=== PATIENT | female | born 1930 | race Caucasian/White ===

== ENCOUNTER 2017-06-05 12:49 | Inpatient (IN) | payer MEDICARE, BC ==
[2017-06-05] MEDS ORDERED: MORPHINE SULFATE 10 MG/ML SYRINGE IM STA (13:39)
--- NOTE | 2017-06-05 13:51 | ED ---
General Adult HPI - General Chief complaint: Extremity Injury, Lower Stated complaint: Fall-Hip Pain Time Seen by Provider: 06/05/17 13:30 Source: patient, family, RN notes reviewed, old records reviewed Mode of arrival: wheelchair Limitations: no limitations - History of Present Illness Initial comments: This is an 87-year-old female presenting to the emergency department after a fall in a restaurant parking lot. Patient reports that she must tripped. She reports that when she fell she does have an abrasion over her left elbow but has significant left hip and pelvis pain. Patient reports that she was not able to ambulate and get up afterward. She was brought into the emergency department by her sons. Patient reports that she does have a orthopedic physician Dr. Mandeep luis. She reports that she has had no broken bones or any surgeries. She reports that she is generally in well health. She denies any neck or head injury during the fall. She reports she has full range of motion of her knee, foot and ankle. Patient reports that she isn't 0 pain while laying still with however she has to move it is 10 of 10. - Related Data Home Medications Medication Instructions Recorded Confirmed No Known Home Medications [No 10/14/14 06/05/17 Known Home Medications] Allergies Allergy/AdvReac Type Severity Reaction Status Date / Time No Known Allergies Allergy Verified 06/05/17 13:25 Review of Systems ROS Statement: Those systems with pertinent positive or pertinent negative responses have been documented in the HPI. ROS Other: All systems not noted in ROS Statement are negative. Past Medical History Past Medical History: No Reported History Additional Past Medical History / Comment(s): DIARHEA OFF AND ON SINCE MAY 2014 , INTERMITTENT LEFT ABDOMINAL PAIN PRIOR TO BM History of Any Multi-Drug Resistant Organisms: None Reported Past Surgical History: Appendectomy, Cholecystectomy, Hysterectomy Additional Past Surgical History / Comment(s): HEMORRHOIDECTOMY Past Anesthesia/Blood Transfusion Reactions: Motion Sickness Past Psychological History: No Psychological Hx Reported Smoking Status: Never smoker Past Alcohol Use History: Rare Past Drug Use History: None Reported General Exam - General Exam Comments Initial Comments: Is a pleasant 87-year-old female. No acute distress. Limitations: no limitations General appearance: alert, in no apparent distress Head exam: Present: atraumatic, normocephalic, normal inspection Eye exam: Present: normal appearance, PERRL, EOMI. Absent: scleral icterus, conjunctival injection, periorbital swelling ENT exam: Present: normal exam, mucous membranes moist Neck exam: Present: normal inspection. Absent: tenderness, meningismus, lymphadenopathy Respiratory exam: Present: normal lung sounds bilaterally. Absent: respiratory distress, wheezes, rales, rhonchi, stridor Cardiovascular Exam: Present: regular rate, normal rhythm, normal heart sounds. Absent: systolic murmur, diastolic murmur, rubs, gallop, clicks GI/Abdominal exam: Present: soft, normal bowel sounds. Absent: distended, tenderness, guarding, rebound, rigid Extremities exam: Present: normal inspection, full ROM, normal capillary refill. Absent: tenderness, pedal edema, joint swelling, calf tenderness Left Hip exam: Present: normal inspection, tenderness (Patient reports significant tenderness to deep Palpation over the hip.). Absent: full ROM, shortening (No significant shortening noted.) Upper Leg exam: Present: normal inspection, full ROM Knee exam: Present: normal inspection, full ROM Lower Leg exam: Present: normal inspection, full ROM Ankle exam: Present: normal inspection, full ROM Foot/Toe exam: Present: normal inspection, full ROM Neurovascular tendon exam: Present: no vascular compromise Back exam: Present: normal inspection Neurological exam: Present: alert, oriented X3, CN II-XII intact Psychiatric exam: Present: normal affect, normal mood Skin exam: Present: warm, dry, intact, normal color. Absent: rash Course Vital Signs 06/05/17 06/05/17 13:22 16:34 Temperature 96.7 F L 98 F Pulse Rate 72 75 Respiratory 18 18 Rate Blood Pressure 138/63 169/75 O2 Sat by Pulse 97 95 Oximetry Medical Decision Making - Medical Decision Making This is an 87-year-old female presenting to the emergency department after a fall in a restaurant parking lot. Patient reports that she must tripped. She reports that when she fell she does have an abrasion over her left elbow but has significant left hip and pelvis pain. Patient was given a bandage over the left elbow. Patient reports that she was not able to ambulate and get up afterward. She was brought into the emergency department by her sons. Patient reports that she does have a orthopedic physician Dr. Mandeep [facility]. She reports that she has had no broken bones or any surgeries. Patient x-rays show evidence of right-sided inferior and superior rami fracture, as well as possible healing left pelvic rami fractures. . Recommend CT follow-up. Discussed with Dr. Peña. Patient will be admitted, and CT will be completed upstairs. Upon deciding for patient to be admitted, we plan to admit to Dr. Covarrubias for eventual placement into extended care facility to help with ambulation and rehab. Dr. Covarrubias was concern for possible trauma activation. I did discuss this case with Caprice from trauma coordination. He she recommends the patient is admitted to work though. I discussed this with Dr. Baird again. At this time we did consult orthopedics. Patient was started on gentle IV fluids, and lab work was obtained. White count and CMP are normal. Patient will be admitted for pain management. At 545 I was told by Dr. Peña that we'll admit the patient to Dr. Chavez is an orthopedic with Dr. Covarrubias and medical management for consult. This was changed at 6:00 PM. Patient was the upstairs at this time. - Lab Data Result diagrams: 06/05/17 15:00 06/05/17 15:00 Lab Results 06/05/17 06/05/17 06/05/17 Range/Units 15:00 15:00 15:00 WBC 8.1 (3.8-10.6) k/uL RBC 4.45 (3.80-5.40) m/uL Hgb 13.7 (11.4-16.0) gm/dL Hct 41.4 (34.0-46.0) % MCV 93.0 (80.0-100.0) fL MCH 30.8 (25.0-35.0) pg MCHC 33.2 (31.0-37.0) g/dL RDW 13.6 (11.5-15.5) % Plt Count 245 (150-450) k/uL Neutrophils % 75 % Lymphocytes % 18 % Monocytes % 4 % Eosinophils % 1 % Basophils % 1 % Neutrophils # 6.1 (1.3-7.7) k/uL Lymphocytes # 1.5 (1.0-4.8) k/uL Monocytes # 0.4 (0-1.0) k/uL Eosinophils # 0.1 (0-0.7) k/uL Basophils # 0.0 (0-0.2) k/uL PT 10.4 (9.0-12.0) sec INR 1.0 (<1.2) APTT 23.1 (22.0-30.0) sec Sodium 141 (137-145) mmol/L Potassium 4.4 (3.5-5.1) mmol/L Chloride 107 (98-107) mmol/L Carbon Dioxide 26 (22-30) mmol/L Anion Gap 8 mmol/L BUN 13 (7-17) mg/dL Creatinine 0.64 (0.52-1.04) mg/dL Est GFR (MDRD) Af Amer >60 (>60 ml/min/1.73 sqM) Est GFR (MDRD) Non-Af >60 (>60 ml/min/1.73 sqM) Glucose 86 (74-99) mg/dL Calcium 9.2 (8.4-10.2) mg/dL Total Bilirubin 0.6 (0.2-1.3) mg/dL AST 38 H (14-36) U/L ALT 35 (9-52) U/L Alkaline Phosphatase 85 (38-126) U/L Total Protein 6.8 (6.3-8.2) g/dL Albumin 4.2 (3.5-5.0) g/dL - Radiology Data Radiology results: report reviewed Hip and pelvis x-ray -Demineralization with acute fractures to the right superior and inferior pelvic rami at the level of the pubic ramus and age- indeterminate probable nondisplaced chronic fractures to the left superior and inferior pelvic rami. Consider CT correlation of pelvis for assessing additional acute pelvic fractures. Chest x-ray -Chronic changes and cardiomegaly without any acute cardiopulmonary process. Left elbow [id number] for any acute process. Comminuted fractures involving the sacrum, right suprapubic ramus and right inferior pubic rami with associated retroperitoneal an extra peritoneal hematomas. Minimally displaced fracture of the inferior pubic ramus on the left appearing partially healed. Degenerative changes of the femoral acetabular joints right greater than left and lumbar sacral spine. Disposition Clinical Impression: Pelvic fracture, Fall Disposition: ADMITTED IP TO THIS [facility] Condition: Good Time of Disposition: 15:44
--- NOTE | 2017-06-05 14:17 | XR ---
EXAMINATION TYPE: XR elbow complete LT DATE OF EXAM: 06/05/2017 CLINICAL HISTORY: Fall injury with left elbow pain. TECHNIQUE: Frontal, lateral and oblique images of the left elbow are obtained. COMPARISON: None FINDINGS: There is no acute fracture/dislocation evident in the left elbow. No abnormal fat pad sig ns are seen. The overlying soft tissue appears unremarkable. IMPRESSION: There is no acute fracture or dislocation in the left elbow.
--- NOTE | 2017-06-05 14:24 | XR ---
EXAMINATION TYPE: XR chest 1V DATE OF EXAM: 06/05/2017 COMPARISON: Chest x-ray April 29, 2014 HISTORY: Fall injury with chest pain. TECHNIQUE: Single AP portable frontal supine view of the chest is obtained. FINDINGS: Elevated right hemidiaphragm is now present. There is chronic minimal change without suspi cious focal air space opacity, pleural effusion, or pneumothorax seen. The cardiac silhouette size i s enlarged with atherosclerotic aorta. The osseous structures are demineralized. IMPRESSION: Chronic changes and cardiomegaly without acute pulmonary process.
--- NOTE | 2017-06-05 14:29 | XR ---
EXAMINATION TYPE: XR Hip LT and AP Pelvis DATE OF EXAM: 06/05/2017 COMPARISON: CT abdomen and pelvis August 19, 2014 HISTORY: Pelvic and left-sided hip pain after fall injury. TECHNIQUE: A single AP view of the pelvis is obtained. Two views of the left hip are obtained. FINDINGS: Osseous structures are demineralized which is noted to lower radiographic sensitivity. In a ddition there is lucency from overlying bowel gas making evaluation suboptimal. The sacroiliac joints appear symmetric and felt within normal limits. There is advanced axial joint space loss right hip j oint with moderate head neck junctional spurring. There is no suspicious linear lucency at level of p ubic symphysis felt to reflect fracture deformity through the superior and inferior pelvic rami. Pubi c symphysis is not suspiciously widened. Age-indeterminate fractures of left superior and inferior pe lvic rami are noted, favored chronic as are fairly sclerotic in appearance. Two views of left hip show no acute fracture or dislocation. No focal lytic or sclerotic lesion seen in the proximal left femur. The overlying soft tissue is unremarkable. IMPRESSION: There is demineralization with acute fractures to right superior and inferior pelvic tami i at level of pubic ramus and age indeterminate probable nondisplaced chronic fractures through left superior and inferior pelvic rami. Consider CT correlation of pelvis to assess for additional acute p elvic fractures.
[2017-06-05 15:19] LABS: Basophils % (A) 1 %; CH 30.5; Eosinophils # (A) 0.1 k/uL (0-0.7); Eosinophils % (A) 1 %; HCT 41.4 % (34.0-46.0); HDW 2.25; HGB 13.7 gm/dL (11.4-16.0); Luc # (Auto) 0.08; Luc % (Auto) 1; Lymphocytes # (A) 1.5 k/uL (1.0-4.8); Lymphocytes % (A) 18 %; MCH 30.8 pg (25.0-35.0); MCHC 33.2 g/dL (31.0-37.0); Mean Platelet Volume 7.4; Monocytes # (A) 0.4 k/uL (0-1.0); Monocytes % (A) 4 %; Neutrophils # (A) 6.1 k/uL (1.3-7.7); Neutrophils % (A) 75 %; RBC 4.45 m/uL (3.80-5.40); RDW 13.6 % (11.5-15.5); WBC 8.1 k/uL (3.8-10.6); WBC (Perox) 8.55
[2017-06-05 15:27] LABS: ALT 35 U/L (9-52); AST 38 U/L (14-36); Alkaline Phosphatase 85 U/L (38-126); Anion Gap 8 mmol/L; Blood Urea Nitrogen 13 mg/dL (7-17); Calcium 9.2 mg/dL (8.4-10.2); Carbon Dioxide 26 mmol/L (22-30); Chloride 107 mmol/L (98-107); Glucose 86 mg/dL (74-99); Non-African American GFR(MDRD) >60 (>60 ml/min/1.73 sqM); Partial Thromboplastin Time 23.1 sec (22.0-30.0); Potassium 4.4 mmol/L (3.5-5.1); Prothrombin Time 10.4 sec (9.0-12.0); Sodium 141 mmol/L (137-145); Total Bilirubin 0.6 mg/dL (0.2-1.3); Total Protein 6.8 g/dL (6.3-8.2)
[2017-06-05] MEDS ORDERED: NALOXONE 0.4 MG/ML 1 ML VIAL IV PRN (15:44)
[2017-06-05] MEDS ORDERED: HYDROmorphone 1 MG/ML 1 ML SYRINGE IV PRN (15:44)
[2017-06-05] MEDS: HYDROcodone/APAP 5-325MG 1 EACH TAB PO PRN ×2 (16:59→21:01)
--- NOTE | 2017-06-05 17:32 | CT ---
EXAMINATION TYPE: CT pelvis wo con DATE OF EXAM: 06/05/2017 COMPARISON: NONE HISTORY: Fall injury with hip pain. CT DLP: 468.7 mGycm Automated exposure control for dose reduction was used. FINDINGS: There is redemonstration of generalized osseous demineralization. Again there are comminuted fracture s of the superior right pubic ramus extending towards the pubic symphysis, and inferior pubic ramus n ear the pubic symphysis as well as a partially corticated fracture of the left inferior pubic ramus, likely related to a healing injury. There are bilateral osteoarthritic changes of the femoral acetabular joints, right greater than left demonstrated as joint space narrowing, acetabular sclerosis, and numerous subchondral cysts. There is no evidence for femoral neck fracture. Degenerative changes are also seen, moderate degree of the vi sualized lumbosacral spine. There is a left sacral alar fracture extending from the superior sacrum inferiorly into the SI joint without sacroiliac joint widening. There is sacroiliac joint sclerosis bilaterally, right greater hui n left. There is an associated retroperitoneal hematoma at the inferior sacrum along the internal petros ac vasculature. No discrete high density is seen to suggest acute hemorrhage although evaluation for acute hemorrhage is limited given the lack of intravenous contrast. Hematoma is also seen as well as soft tissue swelling and phlegmonous changes surrounding the right pubic bone and into the space of R etzius. No intraperitoneal free fluid or hemoperitoneum is appreciated dependently. Atheromatous changes are seen of the abdominal aorta and its branches. Visualized bowel is nondilated and unremarkable. Urinary bladder is incompletely distended. IMPRESSION: 1. COMMINUTED FRACTURES INVOLVING THE SACRUM, RIGHT SUPERIOR PUBIC RAMUS, AND RIGHT INFERIOR PUBIC RA MUS WITH ASSOCIATED RETROPERITONEAL AND EXTRAPERITONEAL HEMATOMAS. 2. MINIMALLY DISPLACED FRACTURE OF THE INFERIOR PUBIC RAMUS ON THE LEFT, APPEARING PARTIALLY HEALED. 3. DEGENERATIVE CHANGES OF THE FEMORAL ACETABULAR JOINTS, RIGHT GREATER THAN LEFT AND LUMBOSACRAL SPI NE. Findings were discussed with the ordering physician Dr. Covarrubias by Dr. Mishra on 06/05/2017 at 1735.
[2017-06-05] MEDS: SODIUM CHLORIDE 0.9% 1,000 ML IV SCH ×2 (18:00)
[2017-06-05] MEDS ORDERED: ALPRAZolam 0.25 MG TAB PO PRN (18:28)
[2017-06-05] MEDS ORDERED: HYDROmorphone 1 MG/ML 1 ML SYRINGE IVP PRN (18:28)
[2017-06-05] MEDS ORDERED: TEMAZEPAM 15 MG CAP PO PRN (18:28)
[2017-06-05 22:56] VITALS: RESP 16
[2017-06-06] MEDS: IBUPROFEN 400 MG TAB PO PRN ×2 (00:21→09:22)
[2017-06-06] MEDS: HYDROcodone/APAP 5-325MG 1 EACH TAB PO PRN ×3 (02:31→18:27)
[2017-06-06] MEDS: SODIUM CHLORIDE 0.9% 1,000 ML IV SCH ×3 (02:34→23:21)
[2017-06-06] MEDS ORDERED: ENOXAPARIN 40 MG/0.4 ML SYRINGE SQ SCH (09:00)
[2017-06-06] MEDS: CALCIUM CARB-VIT D 500MG-200UN 1 EACH TAB PO SCH ×3 (09:22→17:00)
[2017-06-06] MEDS: ONDANSETRON 4 MG/2 ML VIAL IVP PRN ×2 (11:05→22:00)
[2017-06-06] MEDS: ESOMEPRAZOLE 20 MG in SODIUM CHLORIDE 0.9% 50 ML IVPB SCH (11:05)
--- NOTE | 2017-06-06 11:14 | HP ---
DATE OF SERVICE: 06/05/2017 CHIEF COMPLAINTS: Fall and back pain. HISTORY OF PRESENT ILLNESS: This 87-year-old woman with a past medical history of multiple medical problems including diarrhea and left abdominal pain and history of hemorrhoidectomy being followed by Dr. Rodríguez in the outpatient setting apparently living by herself. The patient lost her balance, the patient fell and is complaining of severe pain in the back and is unable to walk. The patient was taken to [facility] and admitted for further evaluation and treatment. There is no history of any fever, rigors. No history of headache , loss of consciousness or seizures. The patient had multiple CAT scans. A pelvis CAT scan was done, which showed comminuted fractures involving the sacrum , right superior pubic ramus, right inferior pubic ramus and associated retroperitoneal and extraperitoneal hematomas and minimally displaced fracture of the inferior pubic ramus on the left, appears to be partially healed and degenerative joint disease also. PAST MEDICAL HISTORY: History of diarrhea, history of cholecystectomy, history of appendectomy. MEDICATIONS PRIOR: None. ALLERGIES: None. FAMILY HISTORY: No history of heart disease or strokes in the family. SOCIAL HISTORY: No history of smoking. No history of alcohol intake. REVIEW OF SYSTEMS: ENT: No history of diminished hearing or diminished vision. CARDIOVASCULAR: No angina or palpitations. RESPIRATORY: No cough, no hemoptysis. GI: No nausea. : No dysuria. NERVOUS SYSTEM: No numbness or weakness. ALLERGY/IMMUNOLOGY: No asthma or hayfever. MUSCULOSKELETAL: As mentioned earlier. HEMATOLOGY/ONCOLOGY: No history of anemia. ENDOCRINE: No history of diabetes mellitus or hypothyroidism. CONSTITUTIONAL: As mentioned earlier. DERMATOLOGY: Negative. RHEUMATOLOGY: Negative. PSYCHIATRY: As mentioned earlier. PHYSICAL EXAMINATION: Patient is alert and oriented x3. Pulse is 75. Blood pressure 169/75, respirations 18, temperature 97.7, pulse ox 95% on room air. HEENT: Conjunctivae normal. Oral mucosa moist. NECK: No jugular venous distention. No carotid bruit. No lymph node enlargement. CARDIOVASCULAR: S1 and S2, muffled. RESPIRATORY: Breath sounds diminished at the bases. No rhonchi, no crackles. ABDOMEN: Soft, nontender. No mass palpable. No guarding or rigidity. LEGS: No edema, no swelling. Movements are painful. EXAMINATION OF BACK: Also some tenderness also present. NERVOUS SYSTEM: Higher function as mentioned earlier. Moves all 4 limbs. No focal motor or sensory deficits. LYMPHATICS: No lymphadenopathy of the neck, axillae or groin. SKIN: No ulcers, rashes or bleeding. LABS: WBC 8.1, hemoglobin 13.7. AST is 38. ASSESSMENT: 1. Fall and multiple pelvic fractures including comminuted fracture including the right sacrum, right superior pubic ramus, right inferior pubic ramus. 2. Fracture of the inferior pubic ramus, possibly healing. 3. Associated retroperitoneal and extraperitoneal hematomas, possibly secondary to fracture. 4. Degenerative joint disease. 5. Severe pain. 6. History of gait dysfunction. 7. Increased AST. 8. History of diarrhea. 9. History of appendectomy. 10. History of cholecystectomy. 11. History of hemorrhoidectomy. RECOMMENDATIONS AND DISCUSSION: In this 87-year-old woman who presented with multiple complex medical issues. Will monitor the patient closely. Continue the current medications. Continue symptomatic treatment. Otherwise, at this time, I would recommend continue with pain medications, DVT prophylaxis. Would also recommend PT, OT evaluation, proton pump inhibitors. Will continue to monitor. Orthopedic Surgery will be consulted and the patient is not able to tolerate ambulation and because of severe pain ECF may be an option also. The multivitamins will be supplemented as well as empiric treatment with Os-Victor Manuel with D also. Will continue to monitor. The prognosis guarded because of multiple complex medical issues and further recommendation to follow. See orders for further details. Also, I had a detailed discussion with the patient and family at the bedside and a copy of dictation forwarded to Dr. Rodríguez who is the primary physician. 4. MTDD
--- NOTE | 2017-06-06 12:53 | P.CNOR ---
History of Present Illness - [facility] Consult date: 06/06/17 Requesting physician: Favian Chavez Consult reason: fracture History of present illness: Patient is a pleasant 79-year-old female seen at bedside this afternoon. She presented through the emergency department yesterday 06/05/2017 after falling on the sidewalk [employer]. X-ray and CT of the pelvis through the emergency department showed fractures of the superior and inferior rami on the right along with a sacral fracture. She was admitted for further management and recommendations. She has left buttock and hip pain currently. She is denying radicular symptoms including numbness or tingling. She has pain with weightbearing on the left side/buttock. She has no other complaints. She denies numbness, tingling, calf pain, fever, chills, chest pain or shortness of breath. Review of Systems All systems: negative Constitutional: Denies chills, Denies fever Eyes: denies blurred vision, denies pain Ears, nose, mouth and throat: Denies headache, Denies sore throat Cardiovascular: Denies chest pain, Denies shortness of breath Respiratory: Denies cough Gastrointestinal: Denies abdominal pain, Denies diarrhea, Denies nausea, Denies vomiting Genitourinary: Denies dysuria, Denies hematuria Musculoskeletal: Denies myalgias Integumentary: Denies pruritus, Denies rash Neurological: Denies numbness, Denies weakness Psychiatric: Denies anxiety, Denies depression Endocrine: Denies fatigue, Denies weight change Past Medical History Past Medical History: Cancer, Osteoarthritis (OA) Additional Past Medical History / Comment(s): CANCER ON LIP(REMOVED), UTI-ECOLI 07-28-14 History of Any Multi-Drug Resistant Organisms: None Reported Past Surgical History: Appendectomy, Cholecystectomy, Hysterectomy Additional Past Surgical History / Comment(s): HEMORRHOIDECTOMY, COLONOSCOPY W/ BX -NEG, CATARACTS, SKIN CANCER ON LIP REMOVED Past Anesthesia/Blood Transfusion Reactions: Motion Sickness Smoking Status: Never smoker - Past Family History Father Family Medical History: CVA/TIA Mother Additional Family Medical History / Comment(s): SUSTAINED A FALL -PT WAS IN A COMA THEN Medications and Allergies Home Medications Medication Instructions Recorded Confirmed Type No Known Home Medications [No 10/14/14 06/05/17 History Known Home Medications] Allergies Allergy/AdvReac Type Severity Reaction Status Date / Time No Known Allergies Allergy Verified 06/05/17 13:25 Physical Examination Inspection of the low back and lower extremities show no wounds or lacerations. There is mild ecchymoses at the left buttock. There is no bony abnormality or deformity. There is no limb length discrepancy. Motor and sensation is intact fully throughout the lower extremities. Calves are soft and nontender. Painless range of motion at the knees, ankles and feet. 2+ dorsalis pedis pulse was 2 second cap refill distally. No pain with range of motion of the hip on the right. Mild pain left buttock with internal/external rotation of the left hip. Results X-ray and CT of the pelvis shows comminuted fracture of the superior and inferior pubic rami on right. There appears to be an old fracture of the inferior pubic rami and left. There is a small left-sided nondisplaced sacral fracture. There are no hip fractures. - Labs Labs: Abnormal Lab Results - Last 24 Hours (Table) 06/05/17 Range/Units 15:00 AST 38 H (14-36) U/L H & H 06/05/17 Range/Units 15:00 Hgb 13.7 (11.4-16.0) gm/dL Hct 41.4 (34.0-46.0) % Coagulation 06/05/17 Range/Units 15:00 INR 1.0 (<1.2) Result Diagrams: 06/05/17 15:00 06/05/17 15:00 Assessment and Plan (1) Pelvic fracture Narrative/Plan: This patient has been reviewed with Dr. Chavez. We recommend that she weight- bear as tolerated with utilizing a walker. It would be in her best interest to be transferred to rehab for placement and progression of her activity, pain control and medical management. We will continue to follow make further recommendations as appropriate thank you. Status: Acute Time with Patient: Less than 30
[2017-06-06] MEDS: MULTIVITAMINS, THERA 1 EACH TAB PO SCH (13:08)
[2017-06-06] MEDS: THIAMINE 100 MG TAB PO SCH (13:08)
[2017-06-06] MEDS: FOLIC ACID 1 MG TAB PO SCH (13:08)
[2017-06-06] MEDS ORDERED: HYDROmorphone 1 MG/ML 1 ML SYRINGE IVP PRN (13:27)
--- NOTE | 2017-06-06 14:07 | XR ---
EXAMINATION TYPE: XR abdomen 1V DATE OF EXAM: 06/06/2017 2:01 PM CLINICAL HISTORY: Abdominal pain not further specified. TECHNIQUE: 2 AP portable supine KUB images of the abdomen are obtained. COMPARISON: CT abdomen and pelvis August 19, 2014. FINDINGS: Scattered gas is seen in non-distended stomach and small bowel loops. Gas and fecal materia l is seen in non-distended colon and rectum. Underlying dextroconvex scoliosis is redemonstrated cent ered at L3 level. There is disc space narrowing and spurring left L3-L4 level. Cholecystectomy clips are noted. Lung bases are clear. There is spurring and joint space loss right hip joint. IMPRESSION: Overall nonobstructive bowel gas pattern.
[2017-06-06] MEDS: ACETAMINOPHEN TAB 325 MG TAB PO PRN (21:46)
[2017-06-06] MEDS: ENOXAPARIN 40 MG/0.4 ML SYRINGE SQ SCH (21:47)
[2017-06-07] MEDS: HYDROcodone/APAP 5-325MG 1 EACH TAB PO PRN ×2 (01:13→08:11)
[2017-06-07] MEDS: ONDANSETRON 4 MG/2 ML VIAL IVP PRN ×2 (08:10→20:09)
[2017-06-07] MEDS: ESOMEPRAZOLE 20 MG in SODIUM CHLORIDE 0.9% 50 ML IVPB SCH (08:10)
[2017-06-07] MEDS: CALCIUM CARB-VIT D 500MG-200UN 1 EACH TAB PO SCH ×3 (08:11→17:49)
[2017-06-07] MEDS: ENOXAPARIN 40 MG/0.4 ML SYRINGE SQ SCH (08:11)
[2017-06-07] MEDS: SODIUM CHLORIDE 0.9% 1,000 ML IV SCH ×2 (08:12→17:49)
[2017-06-07] MEDS ORDERED: KETOROLAC 30 MG/ML 1 ML VIAL IVP PRN (10:13)
[2017-06-07] MEDS ORDERED: HYDROcodone/APAP 5-325MG 1 EACH TAB PO PRN (10:14)
--- NOTE | 2017-06-07 10:24 | PN ---
DATE OF SERVICE: 06/06/17 This 87 -year-old woman was admitted with significant fall and multiple fractures, was seen by orthopedic surgery. Orthopedic surgery has recommended possible rehab and continued conservative management. The patient is also complaining of significant nausea and vomiting also, possible acute gastritis, possible medication induced. Past medical history reviewed. REVIEW OF SYSTEMS: CARDIOVASCULAR: No angina. GI: As mentioned earlier. : No dysuria. RESPIRATORY: Occasional cough. Current medications are reviewed and include: 1. Tylenol 650 q6h prn. 2. [place] 5 mg. 3. Xanax 0.25 t.i.d. 4. Os-Victor Manuel with Vitamin D. 5. Lovenox. 6. Lisinopril. 7. Dilaudid. 8. Multivitamins. 9. Zofran. 10. Restoril. 11. Vitamin B1. PHYSICAL EXAMINATION: The patient is alert and oriented times two. Pulse 95. Blood pressure 128/52. Respiratory rate 16. Temperature 97.9. Pulse ox 86% on room air. HEENT: Conjunctivae normal. NECK: No JVD. CARDIOVASCULAR: S1, S2 muffled. RESPIRATORY: Breath sounds diminished at the bases. A few scattered rhonchi and crackles. Expiratory wheezing. Abdomen is soft, nontender. No mass palpable. LEGS: No edema. No swelling. NERVOUS SYSTEM: Higher functions as mentioned earlier. Moves all four limbs. No focal deficits. Lymphatics: No lymph nodes palpable in the neck, axilla or groin. SKIN: No ulcer, rash or bleeding. LABS: CBC within normal limits. AST 38. ASSESSMENT: 1. Fall and multiple rib fractures including fracture including the right sacrum, right superior pubic ramus, inferior pubic ramus, history of fracture inferior pubic ramus on the right possibly healing. 2. Acute gastritis. 3. associated hematoma possibly secondary to fracture. 4. History of degenerative joint disease. 5. History of severe pain. 6. History of gait dysfunction. 7. Increased AST. 8. History of diarrhea. 9. History of appendectomy. 10. History of cholecystectomy. 11. History of hemorrhoidectomy. 12. FULL CODE. RECOMMENDATIONS AND DISCUSSION: In this 87 -year-old woman who presented with multiple medical issues, we will monitor the patient closely. Recommend to continue current medications. Continue with symptomatic treatment. I would treat the gastritis symptomatically and continue with Nexium. Back off the pain medications slightly. Deep venous thrombosis prophylaxis. General pain management. Orthopedic evaluation. Possible ECF rehab. Follow the cultures. Otherwise, guarded prognosis because of multiple medical issues. Further recommendations to follow. MTDD
[2017-06-07 10:49] LABS: Appearance,Urine Clear (Clear); Bilirubin,Urine Negative (Negative); Glucose,Urine (UA) Negative (Negative); Ketones,Urine Negative (Negative); Leukocyte Esterase,Urine Negative (Negative); Nitrite,Urine Negative (Negative); Protein,Urine Negative (Negative); Specific Gravity,Urine 1.001 (1.001-1.035); UA Billing (MACRO vs. MICRO) CHEM; Urobilinogen,Urine <2.0 mg/dL (<2.0)
[2017-06-07] MEDS: THIAMINE 100 MG TAB PO SCH (11:31)
[2017-06-07] MEDS: MULTIVITAMINS, THERA 1 EACH TAB PO SCH (11:31)
[2017-06-07] MEDS: FOLIC ACID 1 MG TAB PO SCH (11:31)
[2017-06-07 12:32] LABS: Anion Gap 4 mmol/L; Blood Urea Nitrogen 4 mg/dL (7-17); Calcium 8.3 mg/dL (8.4-10.2); Carbon Dioxide 28 mmol/L (22-30); Chloride 106 mmol/L (98-107); Glucose 99 mg/dL (74-99); Non-African American GFR(MDRD) >60 (>60 ml/min/1.73 sqM); Potassium 3.7 mmol/L (3.5-5.1); Sodium 138 mmol/L (137-145)
[2017-06-07 12:35] LABS: Basophils % (A) 0 %; CH 30.7; CHCM 32.9; Eosinophils # (A) 0.2 k/uL (0-0.7); Eosinophils % (A) 3 %; HCT 34.8 % (34.0-46.0); HDW 2.25; HGB 11.2 gm/dL (11.4-16.0); Luc # (Auto) 0.09; Luc % (Auto) 1; Lymphocytes # (A) 0.9 k/uL (1.0-4.8); Lymphocytes % (A) 13 %; MCH 30.2 pg (25.0-35.0); MCHC 32.2 g/dL (31.0-37.0); MCV 93.8 fL (80.0-100.0); Mean Platelet Volume 7.6; Monocytes # (A) 0.3 k/uL (0-1.0); Monocytes % (A) 4 %; Neutrophils # (A) 5.7 k/uL (1.3-7.7); Neutrophils % (A) 79 %; RBC 3.71 m/uL (3.80-5.40); WBC 7.2 k/uL (3.8-10.6); WBC (Perox) 8.11
--- NOTE | 2017-06-07 14:32 | P.PN ---
Subjective Principal diagnosis: Pubic fractures, sacral fracture Patient is a pleasant 79-year-old female seen at bedside this afternoon. She was admitted after x-rays and CT scan of the pelvis show pubic rami fractures and a sacral fracture. She is awaiting placement for rehab. She ambulated with assistance and walker today which is progress from yesterday. She has no new complaints today. She has continued left buttock pain. She has no radicular symptoms including numbness, tingling or weakness. She has no calf pain, fever, chills, chest pain or shortness of breath. Objective - Vital Signs Vital signs: Vital Signs Temp 97.5 F L 06/07/17 07:00 Pulse 102 H 06/07/17 07:00 Resp 16 06/07/17 08:00 BP 184/81 06/07/17 07:00 Pulse Ox 92 L 06/06/17 23:00 Intake & Output 06/06/17 06/07/17 06/07/17 18:59 06:59 18:59 Intake Total 240 1180 1400 Balance 240 1180 1400 Intake: Intake, IV Titration 800 Amount Sodium Chloride 0.9% 1, 800 000 ml @ 100 mls/hr IV . Q10H JEFFREY Rx#:[id number] Oral 240 1180 600 Other: Voiding Method Bedpan Bedside Commode Bedside Commode # Voids 3 3 2 - Exam Inspection of the low back and lower extremities show no wounds or lacerations. There is mild ecchymoses at the left buttock. There is no bony abnormality or deformity. There is no limb length discrepancy. Motor and sensation is intact fully throughout the lower extremities. Calves are soft and nontender. 2+ dorsalis pedis pulse was 2 second cap refill distally. - Constitutional General appearance: Present: no acute distress - Psychiatric Psychiatric: Present: A&O x's 3, appropriate affect, intact judgment & insight - Labs CBC & Chem 7: 06/07/17 12:00 06/07/17 12:00 Labs: Abnormal Lab Results - Last 24 Hours (Table) 06/07/17 06/07/17 Range/Units 12:00 12:00 RBC 3.71 L (3.80-5.40) m/uL Hgb 11.2 L (11.4-16.0) gm/dL Lymphocytes # 0.9 L (1.0-4.8) k/uL BUN 4 L (7-17) mg/dL Creatinine 0.48 L (0.52-1.04) mg/dL Calcium 8.3 L (8.4-10.2) mg/dL Assessment and Plan (1) Pelvic fracture Narrative/Plan: She should continue weight-bear as tolerated with assistance and walker. She may transfer to rehab from an orthopedic standpoint. She may follow up with Dr. Chavez in office in 2 weeks. We'll sign off for now, thank you. Status: Acute Time with Patient: Less than 30
[2017-06-07] MEDS: HEPARIN SODIUM,PORCINE 5,000 UNIT/ML 1 ML VIAL SQ SCH (20:14)
[2017-06-08] MEDS: ACETAMINOPHEN TAB 325 MG TAB PO PRN (02:07)
[2017-06-08 07:22] VITALS: BP 183/89; PULSE 92; TEMP 97.5
[2017-06-08] MEDS ORDERED: PANTOPRAZOLE 40 MG TABLET PO SCH (07:30)
--- NOTE | 2017-06-08 07:54 | PN ---
DATE OF SERVICE: 06/07/2017 This 87-year-old woman who was admitted with significant fall and multiple fractures was seen by Orthopedic Surgery. The patient also had pelvis fracture. The patient will be closely monitored at this time. The patient has significant pain. The patient had reaction to pain medication yesterday with vomiting. No chest pain or palpitation. PAST MEDICAL HISTORY: Reviewed. REVIEW OF SYSTEMS: CARDIOVASCULAR: No angina. RESPIRATORY: As mentioned earlier. GI: As mentioned. : No dysuria. NERVOUS SYSTEM : As mentioned earlier. Current medications are reviewed and include: 1. [place] 5 mg. 2. Xanax. 3. Os-Victor Manuel with vitamin d. 4. Folic acid. 5. Multivitamins. 6. Zofran. PHYSICAL EXAM: The patient is alert and oriented x3. Pulse is 102, blood pressure 184/81, respirations 16, temperature 97.5, pules ox 92% on 2 L. HEENT: Conjunctivae normal. NECK: No jugular venous distention. CARDIOVASCULAR: S1 and S2 muffed. RESPIRATORY: Breath sounds diminished at the bases. A few scattered rhonchi. ABDOMEN: Soft, nontender. LEGS: No edema, no swelling. Movements are painful. NERVOUS SYSTEM: No focal deficits. Labs are WBC 7.2, hemoglobin 11.2. Sodium 138, potassium 3.7. ASSESSMENT: 1. Falling, multiple fractures including right sacrum, right superior suprapubic ramus, inferior pubic ramus, history of fracture inferior pubic ramus. 2. Possible hematomas secondary to fracture. 3. Acute gastritis. 4. Degenerative joint disease. 5. Gait dysfunction. 6. FULL CODE. RECOMMENDATIONS AND DISCUSSION: In this 87-year-old woman who presented with multiple complex medical issues, will monitor the patient closely. Continue the current medications. Continue symptomatic treatment. Otherwise, at this time I would recommend continue the current medication. Continue symptomatic treatment and monitor closely. Further recommendations to follow. MTDD
[2017-06-08 08:08] LABS: Basophils # (A) 0.1 k/uL (0-0.2); Basophils % (A) 1 %; CH 30.2; CHCM 32.7; Eosinophils # (A) 0.6 k/uL (0-0.7); Eosinophils % (A) 7 %; HCT 35.3 % (34.0-46.0); HDW 2.32; HGB 11.6 gm/dL (11.4-16.0); Luc # (Auto) 0.11; Luc % (Auto) 1; Lymphocytes # (A) 1.4 k/uL (1.0-4.8); Lymphocytes % (A) 16 %; MCH 30.6 pg (25.0-35.0); MCV 92.7 fL (80.0-100.0); Mean Platelet Volume 7.3; Monocytes # (A) 0.4 k/uL (0-1.0); Monocytes % (A) 4 %; Neutrophils # (A) 6.1 k/uL (1.3-7.7); Neutrophils % (A) 71 %; RBC 3.81 m/uL (3.80-5.40); RDW 12.6 % (11.5-15.5); WBC 8.6 k/uL (3.8-10.6); WBC (Perox) 8.64
[2017-06-08 08:31] LABS: Anion Gap 6 mmol/L; Blood Urea Nitrogen 4 mg/dL (7-17); Calcium 8.5 mg/dL (8.4-10.2); Carbon Dioxide 30 mmol/L (22-30); Chloride 104 mmol/L (98-107); Glucose 90 mg/dL (74-99); Non-African American GFR(MDRD) >60 (>60 ml/min/1.73 sqM); Potassium 3.9 mmol/L (3.5-5.1); Sodium 140 mmol/L (137-145)
[2017-06-08] MEDS: CALCIUM CARB-VIT D 500MG-200UN 1 EACH TAB PO SCH ×2 (08:38→12:27)
[2017-06-08] MEDS: FOLIC ACID 1 MG TAB PO SCH (08:38)
[2017-06-08] MEDS: SODIUM CHLORIDE 0.9% 1,000 ML IV SCH ×2 (08:38→12:27)
[2017-06-08] MEDS: HEPARIN SODIUM,PORCINE 5,000 UNIT/ML 1 ML VIAL SQ SCH (08:40)
--- NOTE | 2017-06-08 10:21 | P.DS ---
Providers Date of admission: 06/05/17 16:02 Attending physician: Linh Covarrubias Consults: 06/05/17 17:58 Consult Physician Stat Consulting Provider: Linh Covarrubias Consult Reason/Comments: Pelvic fracture, medical managment Do you want consulting provider notified?: Already Contacted Primary care physician: Virginia Rodríguez [facility] Course: This is [age]-year-old woman who was admitted with a fall. The patient had fracture of the right sacrum right superior pubic [place] inferior pubic Dhaval. Patient was treated conservatively. Orthopedics saw the patient. The patient also had hematoma secondary to fracture which was stable. The patient improved significantly. The patient was very intolerant to opiates. On exam vitals are stable. Cardio S1-S2 normal. Chest you to auscultation. Abdomen soft nontender nervous system no focal deficit. Patient be transferred to [facility] on the [facility]. Dr. Macdonald follow-up. Recommended close follow-up with Dr. Rodríguez after discharge from [facility]. Total time taken 35 minutes. Patient Condition at Discharge: Good Plan - Discharge Summary New Discharge Prescriptions: New Acetaminophen Tab [Tylenol] 650 mg PO Q6HR PRN tab PRN Reason: Mild Pain Or Fever > 100.5 ALPRAZolam [Xanax] 0.25 mg PO TID PRN #20 tab PRN Reason: Anxiety Calcium Carb-Vit D 500Mg-200Un [Oscal 500+D] 1 each PO TID-W/MEALS tab Folic Acid 1 mg PO DAILY@1200 tab Heparin Sodium,Porcine [Heparin Sodium] 5,000 unit SQ Q12HR vial Pantoprazole [Protonix] 40 mg PO AC-BRKFST tab Thiamine [Vitamin B-1] 100 mg PO DAILY@1200 tab traMADol HCl [Ultram] 50 mg PO Q6H PRN #30 tab PRN Reason: Pain Discharge Medication List ALPRAZolam [Xanax] 0.25 mg PO TID PRN #20 tab 06/08/17 [Rx] Acetaminophen Tab [Tylenol] 650 mg PO Q6HR PRN tab 06/08/17 [Rx] Calcium Carb-Vit D 500Mg-200Un [Oscal 500+D] 1 each PO TID-W/MEALS tab [Rx] Folic Acid 1 mg PO DAILY@1200 tab 06/08/17 [Rx] Heparin Sodium,Porcine [Heparin Sodium] 5,000 unit SQ Q12HR vial 06/08/17 [Rx] Pantoprazole [Protonix] 40 mg PO AC-BRKFST tab 06/08/17 [Rx] Thiamine [Vitamin B-1] 100 mg PO DAILY@1200 tab 06/08/17 [Rx] traMADol HCl [Ultram] 50 mg PO Q6H PRN #30 tab 06/08/17 [Rx] Follow up Appointment(s)/Referral(s): Virginia Rodríguez III, MD [Primary Care Provider] - 1-2 days Harris Loving MD [STAFF PHYSICIAN] - 3 Days Activity/Diet/Wound Care/Special Instructions: diet cardiac act as tolerated Discharge Disposition: TRANSFER TO SNF/ECF
[2017-06-08] MEDS ORDERED: traMADol 50 MG TAB PO STA (11:38)
[2017-06-08] MEDS: THIAMINE 100 MG TAB PO SCH (12:27)
[2017-06-08] MEDS: MULTIVITAMINS, THERA 1 EACH TAB PO SCH (12:27)
== END 2017-06-08 13:43 | DRG 552 ==
LOC: EC 12:49 → 5MS5E 16:02
PROVIDERS: ADMIT Hospitalist; ATTEND Hospitalist
DX: S32.10XA Unspecified fracture of sacrum, initial encounter for closed fracture (principal); S32.511A Fracture of superior rim of right pubis, initial encounter for closed fracture; G89.11 Acute pain due to trauma; S32.512D Fracture of superior rim of left pubis, subsequent encounter for fracture with routine healing; I51.7 Cardiomegaly; R74.0 Nonspecific elevation of levels of transaminase and lactic acid dehydrogenase [LDH]; T40.2X5A Adverse effect of other opioids, initial encounter; K29.00 Acute gastritis without bleeding; S50.312A Abrasion of left elbow, initial encounter; R11.2 Nausea with vomiting, unspecified; R26.2 Difficulty in walking, not elsewhere classified; R10.9 Unspecified abdominal pain; M47.817 Spondylosis without myelopathy or radiculopathy, lumbosacral region; R19.7 Diarrhea, unspecified; R26.9 Unspecified abnormalities of gait and mobility; M16.0 Bilateral primary osteoarthritis of hip; Z87.19 Personal history of other diseases of the digestive system; Z85.828 Personal history of other malignant neoplasm of skin; Z90.49 Acquired absence of other specified parts of digestive tract; Z87.440 Personal history of urinary (tract) infections; Z98.49 Cataract extraction status, unspecified eye; Z90.710 Acquired absence of both cervix and uterus; Z82.3 Family history of stroke; W01.0XXA Fall on same level from slipping, tripping and stumbling without subsequent striking against object, initial encounter; Y92.480 Sidewalk as the place of occurrence of the external cause; Y92.511 Restaurant or cafe as the place of occurrence of the external cause
CPT/HCPCS: 36415; 71010; 72192; 73502; 74000; 80048; 80053; 81003; 85025; 85610; 85730; 87077; 87086; 87186; 96372; 99285

== ENCOUNTER → 2018-07-30 | Outpatient (CLI) | payer MEDICARE, BC ==
--- NOTE | 2018-07-31 07:37 | US ---
EXAMINATION TYPE: US venous doppler duplex LE LT DATE OF EXAM: 07/30/2018 3:08 PM COMPARISON: NONE CLINICAL HISTORY: M79.662 Pain In Limb. Left popliteal fossa pin x 5 days. SIDE PERFORMED: Left TECHNIQUE: The lower extremity deep venous system is examined utilizing real time linear array sonog davina with graded compression, doppler sonography and color-flow sonography. VESSELS IMAGED: Common Femoral Vein Deep Femoral Vein Greater Saphenous Vein * Femoral Vein Popliteal Vein Small Saphenous Vein * Proximal Calf Veins (* superficial vessels) Left Leg: Negative for DVT; is positive for popliteal fossa cyst = 6.2 x 2.2 x 1.4cm. Grayscale, color doppler, spectral doppler imaging performed of the deep veins of the left lower extr emity. There is normal flow, compressibility, vascular waveforms. IMPRESSION: No ultrasound evidence for acute DVT in the left lower extremity. 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
== END | disposition home or self-care (01) ==
LOC: RADUSWWP 14:42
PROVIDERS: ATTEND Nurse Practitioner Family
DX: M71.22 Synovial cyst of popliteal space [Baker], left knee (principal); M79.662 Pain in left lower leg